=== PATIENT | female | born 1960 | race Caucasian/White ===

== ENCOUNTER → 2017-05-02 | Outpatient (REF) | payer BC, OTHER | LOC: M LAB REF 20:33 | PROVIDERS: ATTEND Physician Assistant Medical | DX: J02.9 Acute pharyngitis, unspecified (principal) ==

== ENCOUNTER 2021-07-29 06:14 | Observation (INO) | payer OTHER ==
[~2021-07-29] VITALS: Ht 165.1 cm; Wt 85.2 kg
[2021-07-29] MEDS: COMBIVENT RESPIMAT 100-20MCG INHALER 4GM INH SCH ×3 (06:50→07:41)
[2021-07-29] MEDS ORDERED: dexameTHASONE 20MG/5ML VIAL (J1100 PER 1MG) IV ONE (07:05)
[2021-07-29] MEDS ORDERED: NS 500 ML IV ONE ×2 (07:05→09:00)
[2021-07-29 07:09] LABS: BASO # 0.1 10^3/uL (0.0-0.2); BASO % 0.9 % (0.0-1.0); EOS # 0.7 10^3/uL (0.0-0.5); EOS % 7.8 % (0.0-3.0); HEMATOCRIT 42.4 % (36.0-47.0); HEMOGLOBIN 13.7 g/dl (12.0-15.5); LYMPH # 1.8 10^3/uL (1.5-5.0); MEAN CORPUSCULAR HEMOGLOBIN 30.2 pg (27.0-33.0); MEAN CORPUSCULAR HGB CONC 32.3 g/dl (32.0-36.5); MEAN CORPUSCULAR VOLUME 93.4 fl (80.0-96.0); MONO # 0.6 10^3/uL (0.0-0.8); MONO % 6.6 % (2.0-8.0); NEUTROPHILS # 5.8 10^3/uL (1.5-8.5); NEUTROPHILS % 64.4 % (36.0-66.0); PLATELET COUNT, AUTOMATED 346 10^3/uL (150-450); RED BLOOD COUNT 4.54 10^6/uL (4.00-5.40)
[2021-07-29 07:23] LABS: CK-MB VALUE MASS 2.6 NG/ML (<3.6); MB/CK RELATIVE INDEX 1.91 (< OR =4)
[2021-07-29 07:29] LABS: ALBUMIN 4.1 GM/DL (3.2-5.2); ALT/SGPT 38 U/L (12-78); BILIRUBIN,DIRECT < 0.1 MG/DL (0.0-0.2); BILIRUBIN,TOTAL 0.2 MG/DL (0.2-1.0); BLOOD UREA NITROGEN 19 MG/DL (7-18); CALCIUM LEVEL 9.5 MG/DL (8.8-10.2); CARBON DIOXIDE LEVEL 25 MEQ/L (21-32); CHLORIDE LEVEL 108 MEQ/L (98-107); CREATININE FOR GFR 0.85 MG/DL (0.55-1.30); GLOMERULAR FILTRATION RATE > 60.0 (>45); GLUCOSE, FASTING 118 MG/DL (70-100); NT-PRO BNP 70 PG/ML (<125); SODIUM LEVEL 139 MEQ/L (136-145)
[2021-07-29] MEDS ORDERED: ACETAMINOPHEN 325 MG TAB PO ONE (08:40)
[2021-07-29] MEDS ORDERED: ISOVUE-370 76% 100ML VIAL As Ordered ONE (08:54)
[2021-07-29] MEDS: MAG SULF 1GM/100ML (MAG RUN) 1 GM in IV 1 EA IV SCH ×2 (08:56→09:35)
[2021-07-29] MEDS ORDERED: IPRATROPIUM 0.5MG/ALBUTEROL 2.5MG INH SOL UD 3ML (DUONEB) NEB ONE (09:00)
[2021-07-29] MEDS ORDERED: LEVALBUTEROL 1.25 MG/0.5 ML CONCENTRATE NEB NEB PRN (11:35)
[2021-07-29] MEDS ORDERED: BENZ-18 PO (11:36)
[2021-07-29] MEDS ORDERED: ROSU20TA5 PO (11:36)
[2021-07-29] MEDS ORDERED: ALBU8.5H INH (11:36)
[2021-07-29] MEDS ORDERED: HOME MED LIST COMPLETE! XX SCH (11:40)
[2021-07-29] MEDS ORDERED: FIORICET TAB PO ONE (13:15)
[2021-07-29] MEDS: BENZONATATE 100MG CAPSULE PO PRN (13:39)
[2021-07-29] MEDS: IPRATROPIUM 0.5MG/ALBUTEROL 2.5MG INH SOL UD 3ML (DUONEB) NEB SCH ×2 (14:00→19:25)
[2021-07-29] MEDS ORDERED: ONDANSETRON 4 MG ORAL DISINTEGRATING TAB PO PRN (14:30)
[2021-07-29 15:12] VITALS: BP 173/89
[2021-07-29] MEDS ORDERED: amLODIPine 5 MG TAB PO ONE ×2 (17:00→19:00)
[2021-07-29] MEDS: methylPREDNISolone 40MG 1ML VIAL IV SCH (17:06)
[2021-07-29 18:39] LABS: CK-MB VALUE MASS 3.6 NG/ML (<3.6); MB/CK RELATIVE INDEX 2.26 (< OR =4)
[2021-07-29 18:45] VITALS: BP 176/97
[2021-07-29 19:07] VITALS: BP 176/97
[2021-07-29] MEDS: ACETAMINOPHEN TAB 650MG DOSE (2X325MG) PO PRN (19:08)
[2021-07-29] MEDS ORDERED: ROSUVASTATIN 10 MG TAB (CRESTOR) PO SCH (21:00)
[2021-07-29 22:00] VITALS: BP 139/71
[2021-07-30 02:25] LABS: CK-MB VALUE MASS 3.3 NG/ML (<3.6); MB/CK RELATIVE INDEX 2.52 (< OR =4)
[2021-07-30] MEDS: IPRATROPIUM 0.5MG/ALBUTEROL 2.5MG INH SOL UD 3ML (DUONEB) NEB SCH ×2 (03:04→08:02)
[2021-07-30] MEDS: methylPREDNISolone 40MG 1ML VIAL IV SCH (05:07)
[2021-07-30 06:00] VITALS: BP 132/66
[2021-07-30 06:18] LABS: HEMATOCRIT 38.2 % (36.0-47.0); HEMOGLOBIN 12.4 g/dl (12.0-15.5); MEAN CORPUSCULAR HEMOGLOBIN 30.2 pg (27.0-33.0); MEAN CORPUSCULAR HGB CONC 32.5 g/dl (32.0-36.5); MEAN CORPUSCULAR VOLUME 92.9 fl (80.0-96.0); PLATELET COUNT, AUTOMATED 358 10^3/uL (150-450); RED BLOOD COUNT 4.11 10^6/uL (4.00-5.40); WHITE BLOOD COUNT 13.3 10^3/uL (4.0-10.0)
[2021-07-30 06:30] LABS: BLOOD UREA NITROGEN 14 MG/DL (7-18); CALCIUM LEVEL 9.8 MG/DL (8.8-10.2); CARBON DIOXIDE LEVEL 22 MEQ/L (21-32); CHLORIDE LEVEL 108 MEQ/L (98-107); CREATININE FOR GFR 0.81 MG/DL (0.55-1.30); GLOMERULAR FILTRATION RATE > 60.0 (>45); GLUCOSE, FASTING 119 MG/DL (70-100); MAGNESIUM LEVEL 3.3 MG/DL (1.8-2.4); POTASSIUM SERUM 4.4 MEQ/L (3.5-5.1); SODIUM LEVEL 139 MEQ/L (136-145)
[2021-07-30 08:49] LABS: CK-MB VALUE MASS 2.4 NG/ML (<3.6); MB/CK RELATIVE INDEX 1.92 (< OR =4)
[2021-07-30] MEDS ORDERED: ENOXAPARIN 40MG/0.4ML SYRINGE (J1650 PER 10MG) SC SCH (09:00)
[2021-07-30] MEDS: ACETAMINOPHEN TAB 650MG DOSE (2X325MG) PO PRN (09:16)
[2021-07-30] MEDS: BENZONATATE 100MG CAPSULE PO PRN (09:47)
[2021-07-30] MEDS ORDERED: PROA1AER2 INH (10:15)
[2021-07-30] MEDS ORDERED: PRED10TA2 PO (10:16)
== END 2021-07-30 13:00 | disposition home or self-care (01) ==
LOC: M ED 06:14 → M ED INP 11:34 → ENRESERV 13:23 → M MSPAV 14:53
PROVIDERS: ADMIT Family Medicine; ATTEND Family Medicine
DX: R06.09 Other forms of dyspnea (principal); J06.9 Acute upper respiratory infection, unspecified; E78.5 Hyperlipidemia, unspecified; R03.0 Elevated blood-pressure reading, without diagnosis of hypertension; R51.9 Headache, unspecified; R11.10 Vomiting, unspecified; Z79.899 Other long term (current) drug therapy
CPT/HCPCS: 36415; 71045; 71275; 80048; 80076; 82550; 82553; 83735; 83880; 84443; 84484; 85025; 85027; 87798; 93005; 93041; 93306; 94640; 94760; 96361; 96365; 96367; 96375; 96376; 99285; J1100; J2920; J3475; Q9967